=== PATIENT | male | born 1940 | race Caucasian/White ===

== ENCOUNTER 2018-05-17 11:20 | Emergency (ER) | payer MEDICARE | END 2018-05-17 13:59 | disposition home or self-care (01) | LOC: C.ER 11:20 ==

== ENCOUNTER 2018-06-04 13:09 | Outpatient (CLI) | payer MEDICARE | END 2018-06-04 13:10 | disposition home or self-care (01) | LOC: C.MRIC 13:09 ==

== ENCOUNTER 2018-06-06 08:30 | Outpatient (CLI) | payer MEDICARE | END 2018-06-06 08:31 | disposition home or self-care (01) | LOC: C.CTH 08:30 ==